=== PATIENT | female | born 1985 | race Caucasian/White ===

== ENCOUNTER 2020-10-04 06:55 | Outpatient (NON) | payer OTHER, SELFPAY ==
[2020-10-04 20:58] LABS: SARS-CoV-2 RNA PCR Negative
== END 2020-10-04 06:56 ==
LOC: ANHCOVIDDT 07:23
PROVIDERS: PCP Family Medicine; Visit Provider Physician Assistant Medical
DX: Z20.828 Contact with and (suspected) exposure to other viral communicable diseases (principal); R09.89 Other specified symptoms and signs involving the circulatory and respiratory systems
CPT/HCPCS: 87635; C9803; U0003

== ENCOUNTER → 2020-12-21 06:51 | Outpatient (CLI) | payer OTHER, SELFPAY ==
[2020-12-22 12:41] LABS: SARS-CoV-2 RNA PCR Negative
== END ==
PROVIDERS: PCP Family Medicine; Visit Provider Family Medicine
DX: Z20.822 Contact with and (suspected) exposure to COVID-19 (principal); R68.89 Other general symptoms and signs
CPT/HCPCS: C9803; U0003; U0005

== ENCOUNTER 2024-10-14 14:24 | Outpatient (CLI) | payer OTHER, SELFPAY ==
--- NOTE | ~2024-10-14 | CT_ITS ---
EXAMINATION: CT sinus wo con DATE: 10/14/2024 14:41 INDICATION: Chronic sinusitis. TECHNIQUE: Computed tomography (CT) of the paranasal sinuses was performed without intravenous contra st. Iterative reconstruction technique was employed. The dose-length product was 312.74 mGy-cm. COMPARISON: None FINDINGS: The frontal sinuses are clear. There is mild mucosal thickening in the anterior right ethmo id sinuses. The sphenoid sinuses are clear. There is mild mucosal thickening in the maxillary sinuses . There is a Nic cell on the left. The ostiomeatal units are patent. Right middle turbinate is par adoxical. There is leftward deviation of the nasal septum with a left lateral spur. IMPRESSION: 1. Mild mucosal thickening in the paranasal sinuses. 2. Leftward deviation of the nasal septum. Reviewed, dictated and finalized at location A. [facility]
== END 2024-10-14 14:25 | disposition home or self-care (01) ==
LOC: MICIMG 14:26
PROVIDERS: Visit Provider Nurse Practitioner Family
DX: J32.9 Chronic sinusitis, unspecified (principal); J34.2 Deviated nasal septum
CPT/HCPCS: 70486